=== PATIENT | female | born 1975 | race Caucasian/White ===

== ENCOUNTER 2018-05-09 03:08 | Inpatient (IN) | payer MEDICAID ==
[2018-05-09] MEDS ORDERED: Butorphanol 1 MG/ML SDV IVPUSH PRN (03:21)
[2018-05-09] MEDS ORDERED: Lidocaine 1% 50 ML MDV INJECT PRN (03:21)
[2018-05-09] MEDS ORDERED: Tranexamic Acid 1,000 MG in Sodium Chloride 0.9% 100 ML IV PRN (03:21)
[2018-05-09] MEDS ORDERED: Ondansetron 4 MG/2 ML SDV IV PRN ×2 (03:21→14:51)
[2018-05-09] MEDS ORDERED: Misoprostol 200 MCG Tab PO PRN (03:21)
[2018-05-09] MEDS ORDERED: Terbutaline 1 MG/ML SDV SUBCUT PRN (03:21)
[2018-05-09] MEDS ORDERED: Sodium Chloride 0.9% 2.5 ML Syringe FLUSH PRN (03:21)
[2018-05-09] MEDS ORDERED: Carboprost Tromethamine 250 MCG/1 ML Amp IM PRN (03:21)
[2018-05-09] MEDS ORDERED: Water For Irrigation,Sterile 1,000 ML Container IRR PRN (03:21)
[2018-05-09] MEDS ORDERED: Misoprostol 25 MCG (1/4 of 100 MCG) Tab VAG PRN (03:21)
[2018-05-09] MEDS ORDERED: Methylergonovine 0.2 MG/1 ML Amp IM PRN (03:21)
[2018-05-09] MEDS ORDERED: Sodium Chloride 0.9% 10 ML Syringe FLUSH PRN (03:21)
[2018-05-09] MEDS ORDERED: Oxytocin/0.9 % Sodium Chloride 30 UNIT/500 ML BAG IV SCH ×2 (03:30)
[2018-05-09] MEDS: Lactated Ringers 1,000 ML IV SCH ×4 (03:35→12:26)
[2018-05-09] MEDS ORDERED: Citric Acid/Sodium Citrate Solution 30 ML Cup ONE (13:33)
[2018-05-09] MEDS ORDERED: Morphine PF 1 MG/ML Amp ONE (13:36)
[2018-05-09] MEDS ORDERED: Sodium Chloride 0.9% 40 ML ONE (13:37)
--- NOTE | 2018-05-09 14:28 | PCM.PREANE ---
Preanesthetic Assessment - Procedure Proposed Procedure: due to intolerance of labor - Anesthesia/Transfusion/Family Hx Anesthesia History: Prior Anesthesia Without Reaction Family History of Anesthesia Reaction: No Transfusion History: No Prior Transfusion(s) Intubation History: Unknown - Review of Systems General: Other (, effect of medication and care) Pulmonary: No Symptoms Cardiovascular: No Symptoms Gastrointestinal: Other (GERD of ) Neurological: Difficulty Walking (due to ) Other: Reports: None - Physical Assessment NPO Status Date: 05/08/18 NPO Status Time: 22:00 Height: 5 ft 8 in Weight: 228 lb ASA Class: 2E Mental Status: Alert & Oriented x3 Airway Class: Mallampati = 1 Dentition: Reports: Normal Dentition Thyro-Mental Finger Breadths: 3 Mouth Opening Finger Breadths: 3 ROM/Head Extension: Full Lungs: Clear to Auscultation, Normal Respiratory Effort Cardiovascular: Regular Rate, Regular Rhythm, No Murmurs - Lab Values: Laboratory Last Values WBC 12.82 K/uL (4.0-11.0) H 05/09/18 03:35 RBC 4.37 M/uL (4.30-5.90) 05/09/18 03:35 Hgb 12.8 g/dL (12.0-16.0) 05/09/18 03:35 Hct 37.1 % (36.0-46.0) 05/09/18 03:35 MCV 84.9 fL (80.0-98.0) 05/09/18 03:35 MCH 29.3 pg (27.0-32.0) 05/09/18 03:35 MCHC 34.5 g/dL (31.0-37.0) 05/09/18 03:35 RDW Std Deviation 43.0 fl (28.0-62.0) 05/09/18 03:35 RDW Coeff of Cammie 14 % (11.0-15.0) 05/09/18 03:35 Plt Count 165 K/uL (150-400) 05/09/18 03:35 MPV 9.80 fL (7.40-12.00) 05/09/18 03:35 Nucleated RBC % 0.0 /100WBC 05/09/18 03:35 Nucleated RBCs # 0 K/uL 05/09/18 03:35 Blood Type O POSITIVE 05/09/18 03:35 Antibody Screen NEGATIVE 05/09/18 03:35 - Allergies Allergies/Adverse Reactions: Allergies Allergy/AdvReac Type Severity Reaction Status Date / Time ibuprofen Allergy Anaphylactic Verified 05/09/18 03:19 Shock - Blood Blood Available: No Product(s) Available: PRBC (T andS) - Anesthesia Plan Pre-Op Medication Ordered: Antacids (bicitra given), Other (terbutaline earlier) - Acknowledgements Anesthesia Type Planned: Spinal Pt an Appropriate Candidate for the Planned Anesthesia: Yes Alternatives and Risks of Anesthesia Discussed w Pt/Guardian: Yes Pt/Guardian Understands and Agrees with Anesthesia Plan: Yes Additional Comments: 2gm ancef rquested by surgeon on arrival to OR - subsequently given - see anesthesia record PreAnesthesia Questionnaire Respiratory History: Reports: Asthma Gastrointestinal History: Reports: Other (See Below) Other Gastrointestinal History: paraesophageal hernia 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: Neurological History: Reports: Migraines - Infectious Disease History Infectious Disease History: Reports: Chicken Pox, Influenza - Past Surgical History HEENT Surgical History: Reports: Tonsillectomy GI Surgical History: Reports: Cholecystectomy - SUBSTANCE USE Smoking Status *Q: Never Smoker Second Hand Smoke Exposure: No - HOME MEDS Home Medications: Home Meds Aspirin 81 mg PO DAILY 05/09/18 [History] Calcium Polycarbophil [Fiber-Caps] 1 tab PO 05/09/18 [History] Magnesium 1 tab PO 05/09/18 [History] Vit W-Ca,Fe,FA(<1 mg) [ Vitamins] 1 tab PO DAILY 05/09/18 [ History] Pyridoxine HCl [Vitamin B-6] 1 tab PO DAILY 05/09/18 [History] - CURRENT (IN HOUSE) MEDS Current Meds: Current Medications Butorphanol Tartrate (Stadol) 1 mg IVPUSH Q1H PRN PRN Reason: Pain Carboprost Tromethamine (Hemabate Ds) 250 mcg IM ASDIRECTED PRN PRN Reason: Post Hemorrhage Lactated Ringer's (Ringers, Lactated) 1,000 mls @ 150 mls/hr IV ASDIRECTED ADRIEN Last Admin: 05/09/18 12:26 Dose: 150 mls/hr Oxytocin/Sodium Chloride (Oxytocin 30 Unit/500 Ml-Ns) 30 unit in 500 mls @ 999 mls/hr IV TITRATE ADRIEN Oxytocin/Sodium Chloride (Oxytocin 30 Unit/500 Ml-Ns) 30 unit in 500 mls @ 2 mls/hr IV TITRATE ADRIEN; Protocol Last Titration: 05/09/18 10:19 Dose: 0 munits/min, 0 mls/hr Tranexamic Acid 1,000 mg/ (Sodium Chloride) 110 mls @ 660 mls/hr IV ONETIME PRN PRN Reason: Bleeding Lidocaine HCl (Xylocaine 1%) 50 ml INJECT ONETIME PRN PRN Reason: Laceration repair Methylergonovine Maleate (Methergine) 0.2 mg IM ASDIRECTED PRN PRN Reason: Post Hemorrhage Misoprostol (Cytotec) 200 mcg PO ONETIME PRN PRN Reason: Post Hemorrhage Misoprostol (Cytotec) 25 mcg VAG Q4H PRN PRN Reason: Cervical Ripening Last Admin: 05/09/18 04:04 Dose: 25 mcg Ondansetron HCl (Zofran) 4 mg IV Q6H PRN PRN Reason: Nausea/Vomiting Sodium Chloride (Saline Flush) 10 ml FLUSH ASDIRECTED PRN PRN Reason: Keep Vein Open Sodium Chloride (Saline Flush) 2.5 ml FLUSH ASDIRECTED PRN PRN Reason: Keep Vein Open Sterile Water (Sterile Water For Irrigation) 1,000 ml IRR ASDIRECTED PRN PRN Reason: delivery Terbutaline Sulfate (Brethine) 0.25 mg SUBCUT ASDIRECTED PRN PRN Reason: Tacysystole Last Admin: 05/09/18 07:00 Dose: 0.25 mg Discontinued Medications Citric Acid/Sodium Citrate (Bicitra Solution) Confirm Administered Dose 30 ml .ROUTE .STK-MED ONE Stop: 05/09/18 13:34 Sodium Chloride (Normal Saline) Confirm Administered Dose 40 mls @ as directed .ROUTE .STK-MED ONE Stop: 05/09/18 13:38 Lidocaine HCl (Xylocaine-Mpf 1%) Confirm Administered Dose 5 mls @ as directed .ROUTE .STK-MED ONE Stop: 05/09/18 13:52 Morphine Sulfate (Duramorph Pf) Confirm Administered Dose 1 mg .ROUTE .STK-MED ONE Stop: 05/09/18 13:37
[2018-05-09] MEDS ORDERED: Naloxone 0.4 MG/ML Syringe IVPUSH PRN (14:31)
[2018-05-09] MEDS ORDERED: Ondansetron 4 MG/2 ML SDV ONE (14:32)
[2018-05-09] MEDS ORDERED: Oxytocin 10 Units/1 ML SDV ONE (14:32)
[2018-05-09] MEDS ORDERED: Phenylephrine/Normal Saline 100 MCG/ML 10 ML Syringe ONE (14:40)
[2018-05-09] MEDS ORDERED: ePHEDrine 50 MG/ML SDV ONE (14:40)
[2018-05-09] MEDS ORDERED: Aluminum Hydroxide/Magnesium Hydroxide/Simethicone Susp 30 ML Cup PO PRN (14:51)
[2018-05-09] MEDS ORDERED: Lanolin 100% Cream 7 GM Tube TOP PRN (14:51)
[2018-05-09] MEDS ORDERED: Bisacodyl 10 MG Supp RECTAL PRN (14:51)
[2018-05-09] MEDS ORDERED: Simethicone 80 MG Tab.Chew PO PRN (14:51)
[2018-05-09] MEDS ORDERED: Acetaminophen/oxyCODONE 325-5 MG Tab PO PRN ×2 (14:51)
[2018-05-09] MEDS ORDERED: diphenhydrAMINE 50 MG/ML SDV IVPUSH PRN (14:51)
--- NOTE | 2018-05-09 14:59 | PCM.OPNOTE ---
- General Post-Op/Procedure Note Date of Surgery/Procedure: 05/09/18 Operative Procedure(s): Primary LTCS Findings: Viable male, apgars 8,9. weight 5lb 7 oz. Delivery intact placenta with 3V cord , Normal appearing pelvis Pre Op Diagnosis: 39.4 week IUP. abnormal heart tones. Post-Op Diagnosis: 39.4 week IUP. abnormal heart tones. Anesthesia Technique: Spinal Primary Surgeon: Sarah Monroe Oyster Worker: Michael Jeter Pathology: Placenta was sent Fluid Replacement, Intraop: 2,700 EBL in mLs: 700 Complications: None known Condition: Good Free Text/Narrative:: Intake & Output 05/08/18 05/09/18 05/09/18 22:59 06:59 14:59 Intake Total 1000 Balance 1000 Dictation [id number]
[2018-05-09] MEDS ORDERED: Lactated Ringers 1,000 ML IV SCH (15:00)
--- NOTE | 2018-05-09 15:17 | PCM48HPAN ---
Post Anesthesia Note - EVALUATION WITHIN 48HRS OF ANESTHETIC Vital Signs in Normal Range: Yes Patient Participated in Evaluation: Yes Respiratory Function Stable: Yes Airway Patent: Yes Cardiovascular Function Stable: Yes Hydration Status Stable: Yes Pain Control Satisfactory: Yes Nausea and Vomiting Control Satisfactory: Yes Mental Status Recovered: Yes Pulse Rate: 78 SaO2: 98 Resp Rate: 16 Temperature: 97.7 F Blood Pressure: 106/58 Pulse Rate: 78
[2018-05-09] MEDS ORDERED: Acetaminophen/oxyCODONE 325-7.5 MG Tab PO PRN (19:31)
--- NOTE | 2018-05-09 20:03 | OR ---
SURGEON: Sarah Monroe M.D. DATE OF PROCEDURE: 05/09/2018 PREOPERATIVE DIAGNOSES: 1. A 39 and 4 week intrauterine . 2. Abnormal heart tones. POSTOPERATIVE DIAGNOSES: 1. A 39 and 4 week intrauterine . 2. Abnormal heart tones. PROCEDURE: Primary low-transverse section. WAREHOUSE GENERAL LABORER: JELANI Jeter. ANESTHESIA: Spinal. ESTIMATED BLOOD LOSS: 700 mL. FLUIDS: 300 mL of crystalloid. COMPLICATIONS: None known. FINDINGS: Viable male. scores 8 at 1 minute and 9 at 5 minutes. Weight of 5 pounds 7 ounces. In delivery, intact placenta, three-vessel cord to pathology, clear amniotic fluid, and normal-appearing pelvis. DISPOSITION: The patient to PACU, nursery, stable. PROCEDURE IN DETAIL: Noemy is a 43-year-old G2, P0-1-0-0, at 39 and 4 weeks gestation, who presents early this morning for scheduled induction of labor due to advanced maternal age. On initial examination, she was found to be a cm, 80% effaced, -3 station, and heart tones were 130s to 140s, category 1. Therefore, she was initiated on Cytotec for cervical ripening within 2 hours; however, with the initiation of some regular contractions, heart tones were having recurrent deceleration to the point where actually terbutaline was delivered to help resolve contractions. The patient responded nicely to this and the heart tones recurred to 130s baseline with accelerations. With IV fluid hydration, repositioning, monitored shortly after 9:00 a.m., attempted to resume low-dose Pitocin, was able to dose 4 milliunits per minute, and again the deceleration recurred to the 60s with some late appearances. Therefore, Pitocin was once again discontinued and repositioned the patient, applied oxygen, and monitored. The heart tones recovering to category 1. I had a discussion with Noemy and her regarding the plan of care at this juncture. Given she is remote from delivery with recurrent decelerations with minimal stimulation to the uterus, we could either one attempt the amniotomy and monitor her for progression on her own or simply proceed with delivery, given the recurrent category two heart tones. After discussion, they feel most comfortable proceeding with delivery. Risks of procedure have been discussed. Proper consent obtained. The patient was taken to the operating room, where she underwent spinal anesthetic with some difficulty. Please see anesthesia note. Once spinal satisfactory placed, the patient was placed in dorsal supine position with leftward tilt, SCDs to lower extremities. [place] to gravity was prepped and draped in the usual sterile fashion. Received Ancef prophylactically. Time-out was performed. Anesthesia was tested and found to be adequate. A Pfannenstiel skin incision was now created and carried down to level of the rectus fascia, which was incised either side laterally and bluntly. The superior aspect of fascia was tented upward, dissected sharply and bluntly from underlying muscles and in a similar aspect with the inferior aspect of the fascia. Rectus muscles along the midline. Peritoneum was entered. Rectus muscle and peritoneum were lateralized bluntly. There is a single uterovesical adhesion to the upper fundal region noted. This was lysed with Metzenbaum scissors and then the uterovesical reflection was visualized. Bladder flap was created sharply and bluntly. Bladder was mobilized away from lower uterine segment. A low transverse hysterotomy was performed. Uterine cavity was entered with the scalpel. Hysterotomy was lateralized bluntly. Head was delivered from the pelvis. An amniotomy was performed. Clear fluid was returned. The head was delivered followed by anterior shoulder, posterior shoulder, and remainder of the body without difficulty. The 's oropharynx and nares bulb suctioned cord was clamped x2 and cut. Infant was handed off to attending physician, Dr. Anderson. Cord arterial, cord venous, cord blood sampling were obtained. The placenta was now delivered. Uterine cavity was cleared of all clot and debris. Hysterotomy was inspected and repaired using 0 Vicryl in continuous locked fashion followed by a re-imbricating layer. Hysterotomy once again inspected and found to be hemostatic. The colonic gutters were cleared of all clot and debris, well irrigated, suction dried. Hysterotomy was again inspected and found to be hemostatic except for some areas of serosal oozing were cauterized. Self-retaining retractor now gently removed. Hysterotomy once again inspected and found to be hemostatic. The rectus muscle and peritoneum were now reapproximated using 0 Vicryl in inverted mattress suture technique. Anterior aspect of the muscle, posterior aspect of the fascia were closely inspected. Any areas of oozing were cauterized. The rectus fascia was reapproximated using 0 Vicryl beginning laterally on each side and meeting in the midline in continuous running fashion. Subcutaneous tissue was now well irrigated and suction dried. Any areas of oozing were cauterized. The skin edges were reapproximated using 3-0 Vicryl in a Telly needle in subcuticular fashion followed by Mastisol and half-inch Steri- Strips for re-imbrication. Uterus remained firm. Hemostasis was evident. Sponge, and needle counts correct x2. The patient tolerated the procedure well overall. She will go to PACU in stable condition. Infant to nursery and placenta to pathology. CALIXTO / MARTI /[id number] MTDD
[2018-05-09] MEDS: Nalbuphine 10 MG/1 ML Vial IVPUSH PRN (21:18)
[2018-05-09] MEDS: Docusate Sodium 100 MG Cap PO SCH (21:18)
[2018-05-10] MEDS: Acetaminophen/oxyCODONE 325-5 MG Tab PO PRN ×2 (00:06→08:12)
[2018-05-10] MEDS: Nalbuphine 10 MG/1 ML Vial IVPUSH PRN (05:11)
--- NOTE | 2018-05-10 07:53 | PCM.PNPP ---
<Michael Jeter - Last Filed: 05/10/18 07:47> - General Info Date of Service: 05/10/18 Admission Dx/Problem (Free Text): Full term Functional Status: Reports: Pain Controlled, Tolerating Diet, Ambulating Pain Score: 5 - Review of Systems General: Reports: No Symptoms HEENT: Reports: No Symptoms Pulmonary: Denies: Shortness of Breath, Pleuritic Chest Pain, Hemoptysis Cardiovascular: Denies: Chest Pain, Palpitations Gastrointestinal: Reports: Nausea, Vomiting. Denies: Constipation, Diarrhea, Difficulty Swallowing, Flatus Genitourinary: Reports: Other (cash came out this morning, has not urinated yet ) Musculoskeletal: Reports: No Symptoms Skin: Reports: No Symptoms Neurological: Reports: No Symptoms Psychiatric: Reports: No Symptoms - General Info Date of Service: 05/10/18 - Patient Data Vital Signs - Most Recent: Last Vital Signs Temp 35.8 C 05/10/18 05:00 Pulse 77 05/10/18 05:00 Resp 16 05/10/18 06:00 BP 105/56 L 05/10/18 04:48 Pulse Ox 96 05/10/18 06:00 Weight - Most Recent: 103.419 kg I&O - Last 24 Hours: Intake & Output 05/09/18 05/10/18 05/10/18 22:59 06:59 14:59 Intake Total 5940 1000 Output Total 1050 1350 Balance 4890 -350 Lab Results - Last 24 Hours: Laboratory Results - last 24 hr 05/09/18 05/10/18 Range/Units 14:45 07:37 Hgb 10.4 L (12.0-16.0) g/dL Hct 29.6 L (36.0-46.0) % Cord ABG pH 7.231 (7.18-7.38) Cord ABG Base Excess -4 (-10--2) Cord VBG pH 7.288 (7.25-7.45) Cord VBG Base Excess -5 (-10--2) Med Orders - Current: Current Medications Al Hydroxide/Mg Hydroxide (Mag-Al Plus) 30 ml PO Q8H PRN PRN Reason: Heartburn Bisacodyl (Dulcolax) 10 mg RECTAL ONETIME PRN PRN Reason: Constipation Carboprost Tromethamine (Hemabate Ds) 250 mcg IM ASDIRECTED PRN PRN Reason: Post Hemorrhage Diphenhydramine HCl (Benadryl) 25 mg IVPUSH Q6H PRN PRN Reason: Itching or Nausea Docusate Sodium (Colace) 100 mg PO BID [facility] Last Admin: 05/09/18 21:18 Dose: 100 mg Emollient Ointment (Lansinoh Hpa) 0 gm TOP ASDIRECTED PRN PRN Reason: Sore Nipples Lactated Ringer's (Ringers, Lactated) 1,000 mls @ 150 mls/hr IV ASDIRECTED [facility] Last Admin: 05/09/18 12:26 Dose: 150 mls/hr Oxytocin/Sodium Chloride (Oxytocin 30 Unit/500 Ml-Ns) 30 unit in 500 mls @ 999 mls/hr IV TITRATE [facility] Oxytocin/Sodium Chloride (Oxytocin 30 Unit/500 Ml-Ns) 30 unit in 500 mls @ 2 mls/hr IV TITRATE [facility]; Protocol Last Titration: 05/09/18 10:19 Dose: 0 munits/min, 0 mls/hr Tranexamic Acid 1,000 mg/ (Sodium Chloride) 110 mls @ 660 mls/hr IV ONETIME PRN PRN Reason: Bleeding Lactated Ringer's (Ringers, Lactated) 1,000 mls @ 125 mls/hr IV ASDIRECTED [facility] Last Admin: 05/09/18 15:33 Dose: 125 mls/hr Methylergonovine Maleate (Methergine) 0.2 mg IM ASDIRECTED PRN PRN Reason: Post Hemorrhage Nalbuphine HCl (Nubain) 10 mg IVPUSH Q3H PRN PRN Reason: pruritis and pain Stop: 05/10/18 14:31 Last Admin: 05/10/18 05:11 Dose: 10 mg Naloxone HCl (Narcan) 0.1 mg IVPUSH ONETIME PRN PRN Reason: Respiratory Depression Stop: 05/10/18 14:31 Ondansetron HCl (Zofran) 4 mg IV Q6H PRN PRN Reason: Nausea/Vomiting Ondansetron HCl (Zofran) 4 mg IV Q4H PRN PRN Reason: Nausea/Vomiting Oxycodone/Acetaminophen (Percocet 325-5 Mg) 1 tab PO Q4H PRN PRN Reason: Pain (moderate 4-6) Oxycodone/Acetaminophen (Percocet 325-5 Mg) 2 tab PO Q4H PRN PRN Reason: Pain (moderate 4-6) Oxycodone/Acetaminophen (Percocet 325-5 Mg) 1 tab PO Q6H PRN PRN Reason: Pain (moderate 4-6) Last Admin: 05/10/18 00:06 Dose: 1 tab Simethicone (Simethicone) 80 mg PO Q4H PRN PRN Reason: Gas Sodium Chloride (Saline Flush) 10 ml FLUSH ASDIRECTED PRN PRN Reason: Keep Vein Open Sodium Chloride (Saline Flush) 2.5 ml FLUSH ASDIRECTED PRN PRN Reason: Keep Vein Open Discontinued Medications Butorphanol Tartrate (Stadol) 1 mg IVPUSH Q1H PRN PRN Reason: Pain Citric Acid/Sodium Citrate (Bicitra Solution) Confirm Administered Dose 30 ml .ROUTE .STK-MED ONE Stop: 05/09/18 13:34 Last Admin: 05/09/18 13:35 Dose: 30 ml Ephedrine Sulfate (Ephedrine Sulfate) Confirm Administered Dose 50 mg .ROUTE .STK-MED ONE Stop: 05/09/18 14:41 Lidocaine HCl (Xylocaine-Mpf 1%) Confirm Administered Dose 5 mls @ as directed .ROUTE .STK-MED ONE Stop: 05/09/18 13:52 Lidocaine HCl (Xylocaine 1%) 50 ml INJECT ONETIME PRN PRN Reason: Laceration repair Misoprostol (Cytotec) 200 mcg PO ONETIME PRN PRN Reason: Post Hemorrhage Misoprostol (Cytotec) 25 mcg VAG Q4H PRN PRN Reason: Cervical Ripening Last Admin: 05/09/18 04:04 Dose: 25 mcg Morphine Sulfate (Duramorph Pf) Confirm Administered Dose 1 mg .ROUTE .STK-MED ONE Stop: 05/09/18 13:37 Ondansetron HCl (Zofran) Confirm Administered Dose 4 mg .ROUTE .STK-MED ONE Stop: 05/09/18 14:33 Oxycodone/Acetaminophen (Percocet 325-7.5 Mg) 1 tab PO Q6H PRN PRN Reason: Pain (moderate 4-6) Oxytocin (Pitocin) Confirm Administered Dose 30 unit .ROUTE .STK-MED ONE Stop: 05/09/18 14:33 Phenylephrine HCl (Phenylephrine In Ns 100 Mcg/Ml) Confirm Administered Dose 1 mg .ROUTE .STK-MED ONE Stop: 05/09/18 14:41 Sterile Water (Sterile Water For Irrigation) 1,000 ml IRR ASDIRECTED PRN PRN Reason: delivery Terbutaline Sulfate (Brethine) 0.25 mg SUBCUT ASDIRECTED PRN PRN Reason: Tacysystole Last Admin: 05/09/18 07:00 Dose: 0.25 mg - Interaction Infant Disposition, : at Bedside Feeding: Attempted ; Nursed Fair/Poor (Baby is being supplemented with formula), Bottle Fed Support Person: Significant Other - Recovery Exam Fundal Tone: Firm Fundal Level: At Umbilicus Fundal Placement: Midline Lochia Amount: Scant Lochia Color: Rubra/Red Perineum Description: Intact, Minimal Bruising/Swelling Episiotomy/Laceration: None Bladder Status: Nonpalpable, Indwelling Catheter in Place Urinary Elimination: Other (see below) (catheter removed, not voiding yet) - Exam General: Alert, Oriented, Cooperative, No Acute Distress HEENT: Pupils Equal, Pupils Reactive Neck: Supple Lungs: Clear to Auscultation, Normal Respiratory Effort Cardiovascular: Regular Rate, Regular Rhythm, No Murmurs GI/Abdominal Exam: Normal Bowel Sounds, Soft, No Abnormal Bruit, No Mass, Pelvis Stable, Tender Extremities: Normal Inspection, No Pedal Edema Skin: Warm, Intact Wound/Incisions: Healing Well, Drainage Neurological: No New Focal Deficit Psy/Mental Status: Alert, Normal Affect, Normal Mood - Problem List & Annotations (1) delivery, delivered, current hospitalization SNOMED Code(s): 912349357 Code(s): O82 - ENCOUNTER FOR DELIVERY WITHOUT INDICATION Status: Acute Current Visit: Yes - Problem List Review Problem List Initiated/Reviewed/Updated: Yes - Assessment Assessment:: PPD#1 Primary LTCS. Minimal pain and lochia. Baby not always waking to breast feed, being supplemented with formula. - Plan Plan:: Continue post operative cares, encourage ambulation today, work with breast feeding. <Sarah Monroe - Last Filed: 05/10/18 08:13> - Patient Data Vital Signs - Most Recent: Last Vital Signs Temp 35.8 C 05/10/18 05:00 Pulse 77 05/10/18 05:00 Resp 16 05/10/18 06:00 BP 105/56 L 05/10/18 04:48 Pulse Ox 96 05/10/18 06:00 I&O - Last 24 Hours: Intake & Output 05/09/18 05/10/18 05/10/18 22:59 06:59 14:59 Intake Total 5940 1000 Output Total 1050 1350 Balance 4890 -350 Lab Results - Last 24 Hours: Laboratory Results - last 24 hr 05/09/18 05/10/18 Range/Units 14:45 07:37 Hgb 10.4 L (12.0-16.0) g/dL Hct 29.6 L (36.0-46.0) % Cord ABG pH 7.231 (7.18-7.38) Cord ABG Base Excess -4 (-10--2) Cord VBG pH 7.288 (7.25-7.45) Cord VBG Base Excess -5 (-10--2) Med Orders - Current: Current Medications Al Hydroxide/Mg Hydroxide (Mag-Al Plus) 30 ml PO Q8H PRN PRN Reason: Heartburn Bisacodyl (Dulcolax) 10 mg RECTAL ONETIME PRN PRN Reason: Constipation Carboprost Tromethamine (Hemabate Ds) 250 mcg IM ASDIRECTED PRN PRN Reason: Post Hemorrhage Diphenhydramine HCl (Benadryl) 25 mg IVPUSH Q6H PRN PRN Reason: Itching or Nausea Docusate Sodium (Colace) 100 mg PO BID [facility] Last Admin: 05/09/18 21:18 Dose: 100 mg Emollient Ointment (Lansinoh Hpa) 0 gm TOP ASDIRECTED PRN PRN Reason: Sore Nipples Lactated Ringer's (Ringers, Lactated) 1,000 mls @ 150 mls/hr IV ASDIRECTED [facility] Last Admin: 05/09/18 12:26 Dose: 150 mls/hr Oxytocin/Sodium Chloride (Oxytocin 30 Unit/500 Ml-Ns) 30 unit in 500 mls @ 999 mls/hr IV TITRATE [facility] Oxytocin/Sodium Chloride (Oxytocin 30 Unit/500 Ml-Ns) 30 unit in 500 mls @ 2 mls/hr IV TITRATE [facility]; Protocol Last Titration: 05/09/18 10:19 Dose: 0 munits/min, 0 mls/hr Tranexamic Acid 1,000 mg/ (Sodium Chloride) 110 mls @ 660 mls/hr IV ONETIME PRN PRN Reason: Bleeding Lactated Ringer's (Ringers, Lactated) 1,000 mls @ 125 mls/hr IV ASDIRECTED [facility] Last Admin: 05/09/18 15:33 Dose: 125 mls/hr Methylergonovine Maleate (Methergine) 0.2 mg IM ASDIRECTED PRN PRN Reason: Post Hemorrhage Nalbuphine HCl (Nubain) 10 mg IVPUSH Q3H PRN PRN Reason: pruritis and pain Stop: 05/10/18 14:31 Last Admin: 05/10/18 05:11 Dose: 10 mg Naloxone HCl (Narcan) 0.1 mg IVPUSH ONETIME PRN PRN Reason: Respiratory Depression Stop: 05/10/18 14:31 Ondansetron HCl (Zofran) 4 mg IV Q6H PRN PRN Reason: Nausea/Vomiting Ondansetron HCl (Zofran) 4 mg IV Q4H PRN PRN Reason: Nausea/Vomiting Oxycodone/Acetaminophen (Percocet 325-5 Mg) 1 tab PO Q4H PRN PRN Reason: Pain (moderate 4-6) Oxycodone/Acetaminophen (Percocet 325-5 Mg) 2 tab PO Q4H PRN PRN Reason: Pain (moderate 4-6) Oxycodone/Acetaminophen (Percocet 325-5 Mg) 1 tab PO Q6H PRN PRN Reason: Pain (moderate 4-6) Last Admin: 05/10/18 00:06 Dose: 1 tab Simethicone (Simethicone) 80 mg PO Q4H PRN PRN Reason: Gas Sodium Chloride (Saline Flush) 10 ml FLUSH ASDIRECTED PRN PRN Reason: Keep Vein Open Sodium Chloride (Saline Flush) 2.5 ml FLUSH ASDIRECTED PRN PRN Reason: Keep Vein Open Discontinued Medications Butorphanol Tartrate (Stadol) 1 mg IVPUSH Q1H PRN PRN Reason: Pain Citric Acid/Sodium Citrate (Bicitra Solution) Confirm Administered Dose 30 ml .ROUTE .STK-MED ONE Stop: 05/09/18 13:34 Last Admin: 05/09/18 13:35 Dose: 30 ml Ephedrine Sulfate (Ephedrine Sulfate) Confirm Administered Dose 50 mg .ROUTE .STK-MED ONE Stop: 05/09/18 14:41 Lidocaine HCl (Xylocaine-Mpf 1%) Confirm Administered Dose 5 mls @ as directed .ROUTE .STK-MED ONE Stop: 05/09/18 13:52 Lidocaine HCl (Xylocaine 1%) 50 ml INJECT ONETIME PRN PRN Reason: Laceration repair Misoprostol (Cytotec) 200 mcg PO ONETIME PRN PRN Reason: Post Hemorrhage Misoprostol (Cytotec) 25 mcg VAG Q4H PRN PRN Reason: Cervical Ripening Last Admin: 05/09/18 04:04 Dose: 25 mcg Morphine Sulfate (Duramorph Pf) Confirm Administered Dose 1 mg .ROUTE .STK-MED ONE Stop: 05/09/18 13:37 Ondansetron HCl (Zofran) Confirm Administered Dose 4 mg .ROUTE .STK-MED ONE Stop: 05/09/18 14:33 Oxycodone/Acetaminophen (Percocet 325-7.5 Mg) 1 tab PO Q6H PRN PRN Reason: Pain (moderate 4-6) Oxytocin (Pitocin) Confirm Administered Dose 30 unit .ROUTE .STK-MED ONE Stop: 05/09/18 14:33 Phenylephrine HCl (Phenylephrine In Ns 100 Mcg/Ml) Confirm Administered Dose 1 mg .ROUTE .STK-MED ONE Stop: 05/09/18 14:41 Sterile Water (Sterile Water For Irrigation) 1,000 ml IRR ASDIRECTED PRN PRN Reason: delivery Terbutaline Sulfate (Brethine) 0.25 mg SUBCUT ASDIRECTED PRN PRN Reason: Tacysystole Last Admin: 05/09/18 07:00 Dose: 0.25 mg - Exam Extremities: Pedal Edema (Trace pedal edema). No: No Pedal Edema Wound/Incisions: No Drainage. No: Drainage, Erythema - My Orders Last 24 Hours: My Active Orders 05/09/18 14:51 Patient Status [ADT] Routine Ambulate [RC] PER UNIT ROUTINE Communication Order [RC] PER UNIT ROUTINE Communication Order [RC] PER UNIT ROUTINE Communication Order [RC] Per Unit Routine May Shower [RC] ASDIRECTED Notify Provider Intake and Out [RC] ASDIRECTED Notify Provider Vital Signs [RC] ASDIRECTED RT Incentive Spirometry [RC] Q2HWA Acetaminophen/oxyCODONE [Percocet 325-5 MG] 1 tab PO Q4H PRN Acetaminophen/oxyCODONE [Percocet 325-5 MG] 2 tab PO Q4H PRN Alum Hydrox/Mag Hydrox/Simeth [Mag-Al Plus] 30 ml PO Q8H PRN Bisacodyl [Dulcolax] 10 mg RECTAL ONETIME PRN Lanolin [Lansinoh HPA] See Dose Instructions TOP ASDIRECTED PRN Ondansetron [Zofran] 4 mg IV Q4H PRN Simethicone 80 mg PO Q4H PRN diphenhydrAMINE [Benadryl] 25 mg IVPUSH Q6H PRN Abdominal Binder [OM.PC] Routine Assess Lochia [WOMSER] Per Unit Routine Assess Uterine Involution [WOMSER] Per Unit Routine Breast Pump [WOMSER] Per Unit Routine Heat Therapy [OM.PC] Routine Ice Therapy [OM.PC] Routine Peripheral IV Discontinue [OM.PC] Routine Sequential Compression Device [OM.PC] Per Unit Routine 05/09/18 15:00 Lactated Ringers [Ringers, Lactated] 1,000 ml IV ASDIRECTED 05/09/18 21:00 Docusate Sodium [Colace] 100 mg PO BID 05/09/18 Dinner Regular Diet [DIET] - Plan Plan:: Seen and examined--agree with above.
[2018-05-10] MEDS: Docusate Sodium 100 MG Cap PO SCH ×2 (08:12→20:47)
--- NOTE | 2018-05-10 14:02 | PCM.POSTAN ---
POST ANESTHESIA ASSESSMENT - MENTAL STATUS Mental Status: Alert, Oriented - VITAL SIGNS Pulse Rate: 88 SaO2: 95 Resp Rate: 16 Blood Pressure: 109/58 Temperature: 97 F - RESPIRATORY Respiratory Status: Respiratory Rate WNL, Airway Patent, O2 Saturation Stable - CARDIOVASCULAR CV Status: Pulse Rate WNL, Blood Pressure Stable - GASTROINTESTINAL GI Status: No Symptoms - POST OP HYDRATION Hydration Status: Adequate & Stable
[2018-05-10] MEDS ORDERED: diphenhydrAMINE 25 MG Cap PO ONE (18:30)
[2018-05-10] MEDS: HYDROmorphone 2 MG Tab PO PRN ×2 (19:48→20:48)
[2018-05-11] MEDS: HYDROmorphone 2 MG Tab PO PRN ×2 (01:21→06:33)
--- NOTE | 2018-05-11 08:08 | PCM.PNPP ---
<Eneida Gill - Last Filed: 05/11/18 08:12> - General Info Date of Service: 05/11/18 Functional Status: Reports: Pain Controlled, Tolerating Diet, Ambulating, Urinating - Review of Systems General: Denies: Fever, Weakness, Fatigue Pulmonary: Denies: Shortness of Breath, Pleuritic Chest Pain, Cough Cardiovascular: Denies: Chest Pain, Palpitations, Dyspnea on Exertion Gastrointestinal: Denies: Abdominal Pain Genitourinary: Denies: Dysuria - General Info Date of Service: 05/11/18 - Patient Data Vital Signs - Most Recent: Last Vital Signs Temp 36.4 C 05/10/18 19:00 Pulse 80 05/10/18 19:00 Resp 15 05/10/18 19:00 BP 109/64 05/10/18 19:00 Pulse Ox 96 05/10/18 19:00 Weight - Most Recent: 103.419 kg Med Orders - Current: Current Medications Al Hydroxide/Mg Hydroxide (Mag-Al Plus) 30 ml PO Q8H PRN PRN Reason: Heartburn Bisacodyl (Dulcolax) 10 mg RECTAL ONETIME PRN PRN Reason: Constipation Carboprost Tromethamine (Hemabate Ds) 250 mcg IM ASDIRECTED PRN PRN Reason: Post Hemorrhage Diphenhydramine HCl (Benadryl) 25 mg IVPUSH Q6H PRN PRN Reason: Itching or Nausea Docusate Sodium (Colace) 100 mg PO BID [facility] Last Admin: 05/10/18 20:47 Dose: 100 mg Emollient Ointment (Lansinoh Hpa) 0 gm TOP ASDIRECTED PRN PRN Reason: Sore Nipples Hydromorphone HCl (Dilaudid) 2 - 4 mg PO Q4H PRN PRN Reason: Pain (moderate 4-6) Last Admin: 05/11/18 06:33 Dose: 2 mg Lactated Ringer's (Ringers, Lactated) 1,000 mls @ 150 mls/hr IV ASDIRECTED [facility] Last Admin: 05/09/18 12:26 Dose: 150 mls/hr Oxytocin/Sodium Chloride (Oxytocin 30 Unit/500 Ml-Ns) 30 unit in 500 mls @ 999 mls/hr IV TITRATE [facility] Oxytocin/Sodium Chloride (Oxytocin 30 Unit/500 Ml-Ns) 30 unit in 500 mls @ 2 mls/hr IV TITRATE [facility]; Protocol Last Titration: 05/09/18 10:19 Dose: 0 munits/min, 0 mls/hr Tranexamic Acid 1,000 mg/ (Sodium Chloride) 110 mls @ 660 mls/hr IV ONETIME PRN PRN Reason: Bleeding Lactated Ringer's (Ringers, Lactated) 1,000 mls @ 125 mls/hr IV ASDIRECTED [facility] Last Admin: 05/09/18 15:33 Dose: 125 mls/hr Methylergonovine Maleate (Methergine) 0.2 mg IM ASDIRECTED PRN PRN Reason: Post Hemorrhage Ondansetron HCl (Zofran) 4 mg IV Q6H PRN PRN Reason: Nausea/Vomiting Ondansetron HCl (Zofran) 4 mg IV Q4H PRN PRN Reason: Nausea/Vomiting Simethicone (Simethicone) 80 mg PO Q4H PRN PRN Reason: Gas Sodium Chloride (Saline Flush) 10 ml FLUSH ASDIRECTED PRN PRN Reason: Keep Vein Open Sodium Chloride (Saline Flush) 2.5 ml FLUSH ASDIRECTED PRN PRN Reason: Keep Vein Open Discontinued Medications Butorphanol Tartrate (Stadol) 1 mg IVPUSH Q1H PRN PRN Reason: Pain Citric Acid/Sodium Citrate (Bicitra Solution) Confirm Administered Dose 30 ml .ROUTE .STK-MED ONE Stop: 05/09/18 13:34 Last Admin: 05/09/18 13:35 Dose: 30 ml Diphenhydramine HCl (Benadryl) 25 mg PO ONETIME ONE Stop: 05/10/18 18:31 Last Admin: 05/10/18 18:47 Dose: 25 mg Ephedrine Sulfate (Ephedrine Sulfate) Confirm Administered Dose 50 mg .ROUTE .STK-MED ONE Stop: 05/09/18 14:41 Lidocaine HCl (Xylocaine-Mpf 1%) Confirm Administered Dose 5 mls @ as directed .ROUTE .STK-MED ONE Stop: 05/09/18 13:52 Lidocaine HCl (Xylocaine 1%) 50 ml INJECT ONETIME PRN PRN Reason: Laceration repair Misoprostol (Cytotec) 200 mcg PO ONETIME PRN PRN Reason: Post Hemorrhage Misoprostol (Cytotec) 25 mcg VAG Q4H PRN PRN Reason: Cervical Ripening Last Admin: 05/09/18 04:04 Dose: 25 mcg Morphine Sulfate (Duramorph Pf) Confirm Administered Dose 1 mg .ROUTE .STK-MED ONE Stop: 05/09/18 13:37 Nalbuphine HCl (Nubain) 10 mg IVPUSH Q3H PRN PRN Reason: pruritis and pain Stop: 05/10/18 14:31 Last Admin: 05/10/18 05:11 Dose: 10 mg Naloxone HCl (Narcan) 0.1 mg IVPUSH ONETIME PRN PRN Reason: Respiratory Depression Stop: 05/10/18 14:31 Ondansetron HCl (Zofran) Confirm Administered Dose 4 mg .ROUTE .STK-MED ONE Stop: 05/09/18 14:33 Oxycodone/Acetaminophen (Percocet 325-5 Mg) 1 tab PO Q4H PRN PRN Reason: Pain (moderate 4-6) Last Admin: 05/10/18 16:03 Dose: 1 tab Oxycodone/Acetaminophen (Percocet 325-5 Mg) 2 tab PO Q4H PRN PRN Reason: Pain (moderate 4-6) Oxycodone/Acetaminophen (Percocet 325-7.5 Mg) 1 tab PO Q6H PRN PRN Reason: Pain (moderate 4-6) Oxycodone/Acetaminophen (Percocet 325-5 Mg) 1 tab PO Q6H PRN PRN Reason: Pain (moderate 4-6) Last Admin: 05/10/18 08:12 Dose: 1 tab Oxytocin (Pitocin) Confirm Administered Dose 30 unit .ROUTE .STK-MED ONE Stop: 05/09/18 14:33 Phenylephrine HCl (Phenylephrine In Ns 100 Mcg/Ml) Confirm Administered Dose 1 mg .ROUTE .STK-MED ONE Stop: 05/09/18 14:41 Sterile Water (Sterile Water For Irrigation) 1,000 ml IRR ASDIRECTED PRN PRN Reason: delivery Terbutaline Sulfate (Brethine) 0.25 mg SUBCUT ASDIRECTED PRN PRN Reason: Tacysystole Last Admin: 05/09/18 07:00 Dose: 0.25 mg - Interaction Infant Disposition, : Lawn at Bedside Infant Feeding: Attempted ; Nursed Fair/Poor (Baby is being supplemented due to hypoglycemia), Bottle Fed Support Person: Significant Other - Recovery Exam Fundal Tone: Firm Fundal Level: At Umbilicus Fundal Placement: Midline Lochia Amount: Scant Lochia Color: Rubra/Red Perineum Description: Intact, Minimal Bruising/Swelling Episiotomy/Laceration: None Bladder Status: Voiding Urinary Elimination: Voided - Exam General: Alert, Oriented Neck: Supple Lungs: Clear to Auscultation, Normal Respiratory Effort Cardiovascular: Regular Rate, Regular Rhythm GI/Abdominal Exam: Normal Bowel Sounds, Soft, No Distention, No Mass Skin: Warm, Dry, Intact - Problem List & Annotations (1) delivery, delivered, current hospitalization SNOMED Code(s): 181700028 Code(s): O82 - ENCOUNTER FOR DELIVERY WITHOUT INDICATION Status: Acute Current Visit: Yes - Problem List Review Problem List Initiated/Reviewed/Updated: Yes - Assessment Assessment:: PPD#2 s/p Primary LTCS. Minimal pain and lochia. Infant on IV for hypoglycemia. Continues to use breast pump. Aim for discharge home tomorrow. - Plan Plan:: Continue routine post-op cares. <Sarah Monroe - Last Filed: 05/11/18 09:08> - Patient Data Vital Signs - Most Recent: Last Vital Signs Temp 36.4 C 05/10/18 19:00 Pulse 100 05/11/18 08:00 Resp 16 05/11/18 08:00 BP 114/67 05/11/18 08:00 Pulse Ox 99 05/11/18 08:00 Med Orders - Current: Current Medications Al Hydroxide/Mg Hydroxide (Mag-Al Plus) 30 ml PO Q8H PRN PRN Reason: Heartburn Bisacodyl (Dulcolax) 10 mg RECTAL ONETIME PRN PRN Reason: Constipation Carboprost Tromethamine (Hemabate Ds) 250 mcg IM ASDIRECTED PRN PRN Reason: Post Hemorrhage Diphenhydramine HCl (Benadryl) 25 mg IVPUSH Q6H PRN PRN Reason: Itching or Nausea Docusate Sodium (Colace) 100 mg PO BID [facility] Last Admin: 05/10/18 20:47 Dose: 100 mg Emollient Ointment (Lansinoh Hpa) 0 gm TOP ASDIRECTED PRN PRN Reason: Sore Nipples Hydromorphone HCl (Dilaudid) 2 - 4 mg PO Q4H PRN PRN Reason: Pain (moderate 4-6) Last Admin: 05/11/18 06:33 Dose: 2 mg Lactated Ringer's (Ringers, Lactated) 1,000 mls @ 150 mls/hr IV ASDIRECTED [facility] Last Admin: 05/09/18 12:26 Dose: 150 mls/hr Oxytocin/Sodium Chloride (Oxytocin 30 Unit/500 Ml-Ns) 30 unit in 500 mls @ 999 mls/hr IV TITRATE [facility] Oxytocin/Sodium Chloride (Oxytocin 30 Unit/500 Ml-Ns) 30 unit in 500 mls @ 2 mls/hr IV TITRATE [facility]; Protocol Last Titration: 05/09/18 10:19 Dose: 0 munits/min, 0 mls/hr Tranexamic Acid 1,000 mg/ (Sodium Chloride) 110 mls @ 660 mls/hr IV ONETIME PRN PRN Reason: Bleeding Lactated Ringer's (Ringers, Lactated) 1,000 mls @ 125 mls/hr IV ASDIRECTED [facility] Last Admin: 05/09/18 15:33 Dose: 125 mls/hr Methylergonovine Maleate (Methergine) 0.2 mg IM ASDIRECTED PRN PRN Reason: Post Hemorrhage Ondansetron HCl (Zofran) 4 mg IV Q6H PRN PRN Reason: Nausea/Vomiting Ondansetron HCl (Zofran) 4 mg IV Q4H PRN PRN Reason: Nausea/Vomiting Simethicone (Simethicone) 80 mg PO Q4H PRN PRN Reason: Gas Sodium Chloride (Saline Flush) 10 ml FLUSH ASDIRECTED PRN PRN Reason: Keep Vein Open Sodium Chloride (Saline Flush) 2.5 ml FLUSH ASDIRECTED PRN PRN Reason: Keep Vein Open Discontinued Medications Butorphanol Tartrate (Stadol) 1 mg IVPUSH Q1H PRN PRN Reason: Pain Citric Acid/Sodium Citrate (Bicitra Solution) Confirm Administered Dose 30 ml .ROUTE .[facility]-MED ONE Stop: 05/09/18 13:34 Last Admin: 05/09/18 13:35 Dose: 30 ml Diphenhydramine HCl (Benadryl) 25 mg PO ONETIME ONE Stop: 05/10/18 18:31 Last Admin: 05/10/18 18:47 Dose: 25 mg Ephedrine Sulfate (Ephedrine Sulfate) Confirm Administered Dose 50 mg .ROUTE .STK-MED ONE Stop: 05/09/18 14:41 Lidocaine HCl (Xylocaine-Mpf 1%) Confirm Administered Dose 5 mls @ as directed .ROUTE .STK-MED ONE Stop: 05/09/18 13:52 Lidocaine HCl (Xylocaine 1%) 50 ml INJECT ONETIME PRN PRN Reason: Laceration repair Misoprostol (Cytotec) 200 mcg PO ONETIME PRN PRN Reason: Post Hemorrhage Misoprostol (Cytotec) 25 mcg VAG Q4H PRN PRN Reason: Cervical Ripening Last Admin: 05/09/18 04:04 Dose: 25 mcg Morphine Sulfate (Duramorph Pf) Confirm Administered Dose 1 mg .ROUTE .STK-MED ONE Stop: 05/09/18 13:37 Nalbuphine HCl (Nubain) 10 mg IVPUSH Q3H PRN PRN Reason: pruritis and pain Stop: 05/10/18 14:31 Last Admin: 05/10/18 05:11 Dose: 10 mg Naloxone HCl (Narcan) 0.1 mg IVPUSH ONETIME PRN PRN Reason: Respiratory Depression Stop: 05/10/18 14:31 Ondansetron HCl (Zofran) Confirm Administered Dose 4 mg .ROUTE .STK-MED ONE Stop: 05/09/18 14:33 Oxycodone/Acetaminophen (Percocet 325-5 Mg) 1 tab PO Q4H PRN PRN Reason: Pain (moderate 4-6) Last Admin: 05/10/18 16:03 Dose: 1 tab Oxycodone/Acetaminophen (Percocet 325-5 Mg) 2 tab PO Q4H PRN PRN Reason: Pain (moderate 4-6) Oxycodone/Acetaminophen (Percocet 325-7.5 Mg) 1 tab PO Q6H PRN PRN Reason: Pain (moderate 4-6) Oxycodone/Acetaminophen (Percocet 325-5 Mg) 1 tab PO Q6H PRN PRN Reason: Pain (moderate 4-6) Last Admin: 05/10/18 08:12 Dose: 1 tab Oxytocin (Pitocin) Confirm Administered Dose 30 unit .ROUTE .STK-MED ONE Stop: 05/09/18 14:33 Phenylephrine HCl (Phenylephrine In Ns 100 Mcg/Ml) Confirm Administered Dose 1 mg .ROUTE .STK-MED ONE Stop: 05/09/18 14:41 Sterile Water (Sterile Water For Irrigation) 1,000 ml IRR ASDIRECTED PRN PRN Reason: delivery Terbutaline Sulfate (Brethine) 0.25 mg SUBCUT ASDIRECTED PRN PRN Reason: Tacysystole Last Admin: 05/09/18 07:00 Dose: 0.25 mg - Plan Plan:: patient seen and examined--agree with above. Trial of lorcet for pain, since had itching and rash with percocet. Heating pad to low abdomen
[2018-05-11] MEDS: Docusate Sodium 100 MG Cap PO SCH ×2 (09:12→21:21)
[2018-05-11] MEDS: Acetaminophen/HYDROcodone 325-5 MG Tab PO PRN ×3 (10:06→21:21)
[2018-05-12] MEDS: Acetaminophen/HYDROcodone 325-5 MG Tab PO PRN ×2 (02:10→09:25)
--- NOTE | 2018-05-12 08:03 | PCM.PNPP ---
<Eneida Gill - Last Filed: 05/12/18 07:59> - General Info Date of Service: 05/12/18 Functional Status: Reports: Pain Controlled, Tolerating Diet, Ambulating, Urinating - Review of Systems General: Denies: Fever, Weakness, Fatigue Pulmonary: Denies: Shortness of Breath, Pleuritic Chest Pain, Cough Cardiovascular: Denies: Chest Pain, Palpitations, Dyspnea on Exertion Gastrointestinal: Denies: Abdominal Pain Genitourinary: Denies: Dysuria - General Info Date of Service: 05/12/18 - Patient Data Vital Signs - Most Recent: Last Vital Signs Temp 36.7 C 05/12/18 03:45 Pulse 86 05/12/18 03:45 Resp 14 05/12/18 03:45 BP 119/72 05/12/18 03:45 Pulse Ox 97 05/12/18 03:45 Weight - Most Recent: 103.419 kg Med Orders - Current: Current Medications Hydrocodone Bitart/Acetaminophen ([place] 325-5 Mg) 1 - 2 tab PO Q4H PRN PRN Reason: Pain Last Admin: 05/12/18 02:10 Dose: 1 tab Al Hydroxide/Mg Hydroxide (Mag-Al Plus) 30 ml PO Q8H PRN PRN Reason: Heartburn Bisacodyl (Dulcolax) 10 mg RECTAL ONETIME PRN PRN Reason: Constipation Carboprost Tromethamine (Hemabate Ds) 250 mcg IM ASDIRECTED PRN PRN Reason: Post Hemorrhage Diphenhydramine HCl (Benadryl) 25 mg IVPUSH Q6H PRN PRN Reason: Itching or Nausea Docusate Sodium (Colace) 100 mg PO BID [facility] Last Admin: 05/11/18 21:21 Dose: 100 mg Emollient Ointment (Lansinoh Hpa) 0 gm TOP ASDIRECTED PRN PRN Reason: Sore Nipples Last Admin: 05/11/18 21:22 Dose: 1 tube Lactated Ringer's (Ringers, Lactated) 1,000 mls @ 150 mls/hr IV ASDIRECTED [facility] Last Admin: 05/09/18 12:26 Dose: 150 mls/hr Oxytocin/Sodium Chloride (Oxytocin 30 Unit/500 Ml-Ns) 30 unit in 500 mls @ 999 mls/hr IV TITRATE [facility] Oxytocin/Sodium Chloride (Oxytocin 30 Unit/500 Ml-Ns) 30 unit in 500 mls @ 2 mls/hr IV TITRATE ADRIEN; Protocol Last Titration: 05/09/18 10:19 Dose: 0 munits/min, 0 mls/hr Tranexamic Acid 1,000 mg/ (Sodium Chloride) 110 mls @ 660 mls/hr IV ONETIME PRN PRN Reason: Bleeding Lactated Ringer's (Ringers, Lactated) 1,000 mls @ 125 mls/hr IV ASDIRECTED [facility] Last Admin: 05/09/18 15:33 Dose: 125 mls/hr Methylergonovine Maleate (Methergine) 0.2 mg IM ASDIRECTED PRN PRN Reason: Post Hemorrhage Ondansetron HCl (Zofran) 4 mg IV Q6H PRN PRN Reason: Nausea/Vomiting Ondansetron HCl (Zofran) 4 mg IV Q4H PRN PRN Reason: Nausea/Vomiting Simethicone (Simethicone) 80 mg PO Q4H PRN PRN Reason: Gas Sodium Chloride (Saline Flush) 10 ml FLUSH ASDIRECTED PRN PRN Reason: Keep Vein Open Sodium Chloride (Saline Flush) 2.5 ml FLUSH ASDIRECTED PRN PRN Reason: Keep Vein Open Discontinued Medications Butorphanol Tartrate (Stadol) 1 mg IVPUSH Q1H PRN PRN Reason: Pain Citric Acid/Sodium Citrate (Bicitra Solution) Confirm Administered Dose 30 ml .ROUTE .STK-MED ONE Stop: 05/09/18 13:34 Last Admin: 05/09/18 13:35 Dose: 30 ml Diphenhydramine HCl (Benadryl) 25 mg PO ONETIME ONE Stop: 05/10/18 18:31 Last Admin: 05/10/18 18:47 Dose: 25 mg Ephedrine Sulfate (Ephedrine Sulfate) Confirm Administered Dose 50 mg .ROUTE .STK-MED ONE Stop: 05/09/18 14:41 Hydromorphone HCl (Dilaudid) 2 - 4 mg PO Q4H PRN PRN Reason: Pain (moderate 4-6) Last Admin: 05/11/18 06:33 Dose: 2 mg Lidocaine HCl (Xylocaine-Mpf 1%) Confirm Administered Dose 5 mls @ as directed .ROUTE .STK-MED ONE Stop: 05/09/18 13:52 Lidocaine HCl (Xylocaine 1%) 50 ml INJECT ONETIME PRN PRN Reason: Laceration repair Misoprostol (Cytotec) 200 mcg PO ONETIME PRN PRN Reason: Post Hemorrhage Misoprostol (Cytotec) 25 mcg VAG Q4H PRN PRN Reason: Cervical Ripening Last Admin: 05/09/18 04:04 Dose: 25 mcg Morphine Sulfate (Duramorph Pf) Confirm Administered Dose 1 mg .ROUTE .STK-MED ONE Stop: 05/09/18 13:37 Nalbuphine HCl (Nubain) 10 mg IVPUSH Q3H PRN PRN Reason: pruritis and pain Stop: 05/10/18 14:31 Last Admin: 05/10/18 05:11 Dose: 10 mg Naloxone HCl (Narcan) 0.1 mg IVPUSH ONETIME PRN PRN Reason: Respiratory Depression Stop: 05/10/18 14:31 Ondansetron HCl (Zofran) Confirm Administered Dose 4 mg .ROUTE .STK-MED ONE Stop: 05/09/18 14:33 Oxycodone/Acetaminophen (Percocet 325-5 Mg) 1 tab PO Q4H PRN PRN Reason: Pain (moderate 4-6) Last Admin: 05/10/18 16:03 Dose: 1 tab Oxycodone/Acetaminophen (Percocet 325-5 Mg) 2 tab PO Q4H PRN PRN Reason: Pain (moderate 4-6) Oxycodone/Acetaminophen (Percocet 325-7.5 Mg) 1 tab PO Q6H PRN PRN Reason: Pain (moderate 4-6) Oxycodone/Acetaminophen (Percocet 325-5 Mg) 1 tab PO Q6H PRN PRN Reason: Pain (moderate 4-6) Last Admin: 05/10/18 08:12 Dose: 1 tab Oxytocin (Pitocin) Confirm Administered Dose 30 unit .ROUTE .STK-MED ONE Stop: 05/09/18 14:33 Phenylephrine HCl (Phenylephrine In Ns 100 Mcg/Ml) Confirm Administered Dose 1 mg .ROUTE .STK-MED ONE Stop: 05/09/18 14:41 Sterile Water (Sterile Water For Irrigation) 1,000 ml IRR ASDIRECTED PRN PRN Reason: delivery Terbutaline Sulfate (Brethine) 0.25 mg SUBCUT ASDIRECTED PRN PRN Reason: Tacysystole Last Admin: 05/09/18 07:00 Dose: 0.25 mg - Infant Interaction Infant Disposition, : [place] at Bedside Infant Feeding: Attempted ; Nursed Fair/Poor (Baby is being supplemented due to hypoglycemia), Bottle Fed , Encouraged to Breastfeed Support Person: Significant Other - Recovery Exam Fundal Tone: Firm Fundal Level: At Umbilicus Fundal Placement: Midline Lochia Amount: Scant Lochia Color: Rubra/Red Perineum Description: Intact, Minimal Bruising/Swelling Episiotomy/Laceration: None Bladder Status: Voiding Urinary Elimination: Voided - Exam General: Alert, Oriented Neck: Supple Lungs: Clear to Auscultation, Normal Respiratory Effort Cardiovascular: Regular Rate, Regular Rhythm GI/Abdominal Exam: Normal Bowel Sounds, Soft, Non-Tender, No Distention, Pelvis Stable Extremities: Normal Inspection, Normal Range of Motion, Normal Capillary Refill , Pedal Edema (trace) Skin: Warm, Dry, Intact - Problem List & Annotations (1) delivery, delivered, current hospitalization SNOMED Code(s): 422734362 Code(s): O82 - ENCOUNTER FOR DELIVERY WITHOUT INDICATION Status: Acute Current Visit: Yes - Problem List Review Problem List Initiated/Reviewed/Updated: Yes - Assessment Assessment:: POD#3 s/p Primary LTCS. Minimal pain and lochia. Continues to use breast pump. Discharge home today. - Plan Plan:: Discharge home today. Pelvic rest for 6 weeks. Continue PNV while breast feeding. Rx for Lorcet to use as needed for pain. No lifting greater than 10lbs for 6 weeks. Instructed patient to call if she develops fever greater than 101 or bleeding through a large pad an hour. F/U with [facility] in 2 and 6 weeks. <Sarah Monroe - Last Filed: 05/12/18 08:23> - Patient Data Vital Signs - Most Recent: Last Vital Signs Temp 36.7 C 05/12/18 03:45 Pulse 86 05/12/18 03:45 Resp 14 05/12/18 03:45 BP 119/72 05/12/18 03:45 Pulse Ox 97 05/12/18 03:45 Med Orders - Current: Current Medications Hydrocodone Bitart/Acetaminophen ([place] 325-5 Mg) 1 - 2 tab PO Q4H PRN PRN Reason: Pain Last Admin: 05/12/18 02:10 Dose: 1 tab Al Hydroxide/Mg Hydroxide (Mag-Al Plus) 30 ml PO Q8H PRN PRN Reason: Heartburn Bisacodyl (Dulcolax) 10 mg RECTAL ONETIME PRN PRN Reason: Constipation Carboprost Tromethamine (Hemabate Ds) 250 mcg IM ASDIRECTED PRN PRN Reason: Post Hemorrhage Diphenhydramine HCl (Benadryl) 25 mg IVPUSH Q6H PRN PRN Reason: Itching or Nausea Docusate Sodium (Colace) 100 mg PO BID [facility] Last Admin: 05/11/18 21:21 Dose: 100 mg Emollient Ointment (Lansinoh Hpa) 0 gm TOP ASDIRECTED PRN PRN Reason: Sore Nipples Last Admin: 05/11/18 21:22 Dose: 1 tube Lactated Ringer's (Ringers, Lactated) 1,000 mls @ 150 mls/hr IV ASDIRECTED [facility] Last Admin: 05/09/18 12:26 Dose: 150 mls/hr Oxytocin/Sodium Chloride (Oxytocin 30 Unit/500 Ml-Ns) 30 unit in 500 mls @ 999 mls/hr IV TITRATE [facility]EN Oxytocin/Sodium Chloride (Oxytocin 30 Unit/500 Ml-Ns) 30 unit in 500 mls @ 2 mls/hr IV TITRATE ADRIEN; Protocol Last Titration: 05/09/18 10:19 Dose: 0 munits/min, 0 mls/hr Tranexamic Acid 1,000 mg/ (Sodium Chloride) 110 mls @ 660 mls/hr IV ONETIME PRN PRN Reason: Bleeding Lactated Ringer's (Ringers, Lactated) 1,000 mls @ 125 mls/hr IV ASDIRECTED [facility] Last Admin: 05/09/18 15:33 Dose: 125 mls/hr Methylergonovine Maleate (Methergine) 0.2 mg IM ASDIRECTED PRN PRN Reason: Post Hemorrhage Ondansetron HCl (Zofran) 4 mg IV Q6H PRN PRN Reason: Nausea/Vomiting Ondansetron HCl (Zofran) 4 mg IV Q4H PRN PRN Reason: Nausea/Vomiting Simethicone (Simethicone) 80 mg PO Q4H PRN PRN Reason: Gas Sodium Chloride (Saline Flush) 10 ml FLUSH ASDIRECTED PRN PRN Reason: Keep Vein Open Sodium Chloride (Saline Flush) 2.5 ml FLUSH ASDIRECTED PRN PRN Reason: Keep Vein Open Discontinued Medications Butorphanol Tartrate (Stadol) 1 mg IVPUSH Q1H PRN PRN Reason: Pain Citric Acid/Sodium Citrate (Bicitra Solution) Confirm Administered Dose 30 ml .ROUTE .STK-MED ONE Stop: 05/09/18 13:34 Last Admin: 05/09/18 13:35 Dose: 30 ml Diphenhydramine HCl (Benadryl) 25 mg PO ONETIME ONE Stop: 05/10/18 18:31 Last Admin: 05/10/18 18:47 Dose: 25 mg Ephedrine Sulfate (Ephedrine Sulfate) Confirm Administered Dose 50 mg .ROUTE .STK-MED ONE Stop: 05/09/18 14:41 Hydromorphone HCl (Dilaudid) 2 - 4 mg PO Q4H PRN PRN Reason: Pain (moderate 4-6) Last Admin: 05/11/18 06:33 Dose: 2 mg Lidocaine HCl (Xylocaine-Mpf 1%) Confirm Administered Dose 5 mls @ as directed .ROUTE .STK-MED ONE Stop: 05/09/18 13:52 Lidocaine HCl (Xylocaine 1%) 50 ml INJECT ONETIME PRN PRN Reason: Laceration repair Misoprostol (Cytotec) 200 mcg PO ONETIME PRN PRN Reason: Post Hemorrhage Misoprostol (Cytotec) 25 mcg VAG Q4H PRN PRN Reason: Cervical Ripening Last Admin: 05/09/18 04:04 Dose: 25 mcg Morphine Sulfate (Duramorph Pf) Confirm Administered Dose 1 mg .ROUTE .STK-MED ONE Stop: 05/09/18 13:37 Nalbuphine HCl (Nubain) 10 mg IVPUSH Q3H PRN PRN Reason: pruritis and pain Stop: 05/10/18 14:31 Last Admin: 05/10/18 05:11 Dose: 10 mg Naloxone HCl (Narcan) 0.1 mg IVPUSH ONETIME PRN PRN Reason: Respiratory Depression Stop: 05/10/18 14:31 Ondansetron HCl (Zofran) Confirm Administered Dose 4 mg .ROUTE .STK-MED ONE Stop: 05/09/18 14:33 Oxycodone/Acetaminophen (Percocet 325-5 Mg) 1 tab PO Q4H PRN PRN Reason: Pain (moderate 4-6) Last Admin: 05/10/18 16:03 Dose: 1 tab Oxycodone/Acetaminophen (Percocet 325-5 Mg) 2 tab PO Q4H PRN PRN Reason: Pain (moderate 4-6) Oxycodone/Acetaminophen (Percocet 325-7.5 Mg) 1 tab PO Q6H PRN PRN Reason: Pain (moderate 4-6) Oxycodone/Acetaminophen (Percocet 325-5 Mg) 1 tab PO Q6H PRN PRN Reason: Pain (moderate 4-6) Last Admin: 05/10/18 08:12 Dose: 1 tab Oxytocin (Pitocin) Confirm Administered Dose 30 unit .ROUTE .STK-MED ONE Stop: 05/09/18 14:33 Phenylephrine HCl (Phenylephrine In Ns 100 Mcg/Ml) Confirm Administered Dose 1 mg .ROUTE .STK-MED ONE Stop: 05/09/18 14:41 Sterile Water (Sterile Water For Irrigation) 1,000 ml IRR ASDIRECTED PRN PRN Reason: delivery Terbutaline Sulfate (Brethine) 0.25 mg SUBCUT ASDIRECTED PRN PRN Reason: Tacysystole Last Admin: 05/09/18 07:00 Dose: 0.25 mg - My Orders Last 24 Hours: My Active Orders 05/11/18 09:09 Acetaminophen/HYDROcodone [[place] 325-5 MG] 1 - 2 tab PO Q4H PRN Heat Therapy [OM.PC] Routine - Plan Plan:: Patient seen and examined, agree with above
[2018-05-12] MEDS ORDERED: Measles, Mumps & Rubella Vaccine 0.5 ML SDV SUBCUT ONE (08:49)
[2018-05-12] MEDS: Docusate Sodium 100 MG Cap PO SCH (09:25)
== END 2018-05-12 11:20 | disposition home or self-care (01) | DRG 788 ==
LOC: MW.OBCHECK 03:08 → MW.OB 03:12 → MW.OBCHECK 03:21 → OBSVTOIN 14:17 → MW.OB 14:28
PROVIDERS: ADMIT Obstetrics & Gynecology; ATTEND Obstetrics & Gynecology
PROC: 10D00Z1 Extraction of Products of Conception, Low, Open Approach (ICD-10-PCS; principal; 2018-05-09)
PROC: 3E0P7VZ Introduction of Hormone into Female Reproductive, Via Natural or Artificial Opening (ICD-10-PCS; 2018-05-09)
PROC: 3E033VJ Introduction of Other Hormone into Peripheral Vein, Percutaneous Approach (ICD-10-PCS; 2018-05-09)
DX: O76 Abnormality in fetal heart rate and rhythm complicating labor and delivery (principal); L27.1 Localized skin eruption due to drugs and medicaments taken internally; T40.2X5A Adverse effect of other opioids, initial encounter; Y92.230 Patient room in hospital as the place of occurrence of the external cause; O09.523 Supervision of elderly multigravida, third trimester; Z3A.39 39 weeks gestation of pregnancy; Z37.0 Single live birth
CPT/HCPCS: 36415; 59025; 82803; 85014; 85018; 85027; 86850; 86900; 86901; 88307; 90471; 90707; A9270-GY; J2274; J2300; J2370; J2405; J2590; J3105; J7120